=== PATIENT | female | born 1980 | race Caucasian/White ===

== ENCOUNTER 2020-05-19 16:01 | Outpatient (CLI) | payer BC, SELFPAY ==
--- NOTE | ~2020-05-19 | US_ITS ---
EXAMINATION: US thyroid EXAM DATE: 05/19/2020 16:33 INDICATION: Multinodular goiter. TECHNIQUE: Multiple grayscale and Doppler images of the thyroid were obtained (by a technologist who performed the scan) and subsequently reviewed. Individual nodules and recommendations may be reporte d in accordance with TI-RADS system as designated by the 2017 ACR White Paper TI-RADS committee. Comp constanzason is made to prior examination from 02/27/2019, 02/01/2018. FINDINGS: The right thyroid lobe measures 5.8 x 0.8 x 2.4 cm, the left measuring 5.4 x 1.3 x 1.9 cm. These dime nsions are mildly enlarged. Relatively homogeneous thyroid echogenicity, with scattered thyroid nodul es. Previously characterized right thyroid lobe superior pole category TR 4 nodule measures 1.2 x 0.9, st able. This demonstrates hypervascularity. Previously demonstrated right thyroid lobe midpole category TR 5 nodule measures 1.3 x 0.7 x 1.0 cm, stable. This demonstrates microcalcifications. Previously demonstrated left thyroid lobe category TR 4 nodule was previously biopsied, measures 1.7 x 0.6 x 1.1 cm, is hypervascular. There is another left thyroid lobe category TR 4 nodule more superf icial and laterally measuring 1.7 x 0.9 x 1.2 cm, also previously biopsied with benign results, also unchanged. IMPRESSION: Stable multinodular goiter. Reviewed, dictated and finalized at location G. IMPRESSION: Stable multinodular goiter.
== END 2020-05-19 16:02 | disposition home or self-care (01) ==
PROVIDERS: Visit Provider Internal Medicine Endocrinology, Diabetes & Metabolism
DX: E04.2 Nontoxic multinodular goiter (principal)
CPT/HCPCS: 76536

== ENCOUNTER 2021-04-14 15:52 | Outpatient (CLI) | payer BC, SELFPAY ==
--- NOTE | ~2021-04-14 | US_ITS ---
EXAMINATION: US thyroid DATE: 04/14/2021 16:28 INDICATION: Nontoxic single thyroid nodule TECHNIQUE: Multiple ultrasound images of the thyroid were obtained. COMPARISON: 05/19/2020 FINDINGS: The right thyroid lobe measures 5.3 x 1.9 x 1.6 cm. The left thyroid lobe measures 5.3 x 2.2 x 1.1 c m. Thyroid isthmus measures 3-4 mm thickness. Unchanged 1.4 cm isoechoic predominantly solid nodule w ith smooth margins and without echogenic foci in the superior right thyroid lobe (TI-RADS 3, mildly s uspicious , FNA if >=2.5 cm, annual followup is >1.5 cm). Unchanged 1.4 cm predominant solid wider th an tall hypoechoic nodule with smooth margins and with a few small internal echogenic foci (TI-RADS 5 , highly suspicious , FNA if >=1.0 cm, annual followup is >0.5 cm) in the mid right thyroid. Unchange d 9 mm TI RADS 1 spongiform nodule in the inferior right thyroid lobe. Unchanged 1.8 cm solid isoecho ic nodule which is wider than tall and with smooth echogenic margins at the superior left thyroid wit h previous benign biopsy in 06/15/2016. Unchanged 2.0 cm wider than tall solid hypoechoic nodule with lobular margins and internal echogenic foci in the inferior left thyroid lobe (TI-RADS 5, highly stephanie picious , FNA if >=1.0 cm, annual followup is >0.5 cm), also with prior benign biopsy on 03/07/2018. IMPRESSION: 1. Stable multinodular goiter with prior benign biopsies of the 2 largest left thyroid nodules. Reviewed, dictated and finalized at location A.
== END 2021-04-14 15:53 | disposition home or self-care (01) ==
PROVIDERS: PCP Internal Medicine Endocrinology, Diabetes & Metabolism; Visit Provider Internal Medicine Endocrinology, Diabetes & Metabolism
DX: E04.2 Nontoxic multinodular goiter (principal)
CPT/HCPCS: 76536

== ENCOUNTER 2022-04-19 09:30 | Outpatient (CLI) | payer BC, SELFPAY ==
--- NOTE | ~2022-04-19 | US_ITS ---
EXAMINATION: US thyroid DATE: 04/19/2022 10:16 INDICATION: Thyroid nodule. TECHNIQUE: Multiple ultrasound images of the thyroid were obtained. COMPARISON: Thyroid ultrasound 04/14/2021, 04/14/2016, 02/27/19 FINDINGS: The right thyroid lobe measures 5.9 x 1.5 x 2.4 cm. The left thyroid lobe measures 5.5 x 0.9 x 2.3 c m. In superior right thyroid lobe, there is a 1.8 cm solid, hypoechoic, wider than tall nodule with smooth margin without echogenic foci (TI-RADS TR4), stable from 04/14/21 and increased in size from . In the right thyroid lobe, there is a 1.4 cm mixed cystic and solid, hypoechoic, wider than ta ll nodule with lobulated margin and punctate echogenic foci (TR5), stable from 04/14/16 and likely vivek ign. In the left thyroid lobe, there is a 1.9 cm solid, hypoechoic, wider than tall nodule with ill-d efined margin without echogenic foci (TR4), decreased in size from 04/14/16 and with benign biopsy on 06/15/16. In the left thyroid lobe, there is a 1.9 cm solid, hypoechoic, wider than tall nodule with lobulated margin and punctate echogenic foci (TR5), stable from 03/07/18 when biopsy was benign. IMPRESSION: 1. Stable multinodular goiter. Reviewed, dictated and finalized at location A.
== END 2022-04-19 09:31 | disposition home or self-care (01) ==
PROVIDERS: Visit Provider Internal Medicine Endocrinology, Diabetes & Metabolism
DX: E04.2 Nontoxic multinodular goiter (principal)
CPT/HCPCS: 76536

== ENCOUNTER 2025-03-30 14:14 | Outpatient (CLI) | payer OTHER, SELFPAY ==
--- NOTE | ~2025-03-30 | US_ITS ---
US thyroid INDICATION: Multinodular goiter TECHNIQUE: Real-time sonographic images of the thyroid gland were obtained. COMPARISON: Ultrasound dated 04/19/2022 FINDINGS: The right thyroid lobe measures 5.7 x 2.3 x 1.4 cm. The left thyroid lobe measures 5.8 x 2 .2 x 1.1 cm. Thyroid gland is diffusely heterogeneous with multiple masses, largest on the right page ures 2.3 x 1.3 x 1.4 cm and is mostly solid, hypoechoic, wider than tall, smoothly marginated without internal echogenic foci, TR 4 this is larger than on prior examination when it measured 1.8 x 1.4 x 1 cm stable left thyroid masses, largest measuring 1.9 x 1.4 x 1 cm.. IMPRESSION: 1. Multinodular goiter. Enlargement of dominant right thyroid mass now measuring 2.3 cm, TR 4. Ultra sound-guided right thyroid biopsy recommended. Reviewed, dictated and finalized at location A. IMPRESSION: 1. Multinodular goiter. Enlargement of dominant right thyroid mass now measuri ng 2.3 cm, TR 4. Ultrasound-guided right thyroid biopsy recommended.
--- OUTSIDE RECORDS SUMMARY | 2025-03-30 14:19 | XMS_ITS | Clinical Summary ---
Author Organization [facility] Address [facility] [place] [address] Care Team Providers Care Slime Plant Operator Name Role Phone Unavailable Primary Care Provider Unavailabl e Social History Tobacco Use Types Packs/Day Years Used Date Smoking Tobacco: Never Assessed Comments Unknown Sex and Gender Information Value Date Recorded Sex Assigned at Not on file Legal Sex Female 5:48 PM CDT Gender Identity Not on file Sexual Orientation Not on file Plan of Treatment Health Maintenance Due Date Last Done Comments Cervical Cancer Screening Pa p Smear (Age 30 to 64) Every 3 Years 1979 Colorectal Cancer Screening Colonoscopy (10 Years) 1979 Annual Physical 1982 Hepatitis C 1997 DTaP, Tdap and Td Vaccines ( 1 - Tdap) 1998 Hepatitis B Vaccines (1 of 3 - 19+ 3-dose series) 1998 HPV Vaccines (1 - 3-dose SCD M series) 2006 Cervical Cancer Screening Pa p with HPV Testing (Age 30 to 64) Every 5 Years 2009 Cervical Cancer Screening with HPV 2009 Mammogram Screening 2019 COVID-19 Vaccine (2023-2 5 season) 2024 Meningococcal B Vaccine Aged Out No l onger eligible based on patient's age to complete this topic Meningococcal Vaccine Aged Out No roman luci eligible based on patient's age to complete this topic Pneumococcal Vaccine: Pediat rics (0 to 5 Years) and At-Risk Patients (6 to 49 Years) Aged Out No longer eligible b ased on patient's age to complete this topic RSV Immunizations Under 20 Months Aged Out No longer eligible based on patient's age to complete this topic
--- OUTSIDE RECORDS SUMMARY | 2025-03-30 14:19 | XMS_ITS | Clinical Summary ---
Author Organization [facility] ([place], [place]) Address [facility] [place] [address] Care Team Providers Care Video System Repairer Name Role Phone Wallace Simmons MD Primary Care Provider [phone] Allergies No known active allergies Medications norethindrone (MICRONOR) 0.35 mg tablet Take 1 tablet (0.35 mg total) by mouth daily 09/25/2024 Active escitalopram (LEXAPRO) 20 mg tablet Take 1 tablet (20 mg total) by mouth daily Active spironolactone (ALDACTONE) 100 mg tablet Take 1 tablet (100 mg total) by mouth daily 11/07/2024 Active SUMAtriptan (IMITREX) 50 mg tablet Take 1 tablet (50 mg total) by mouth 2 (two) times a day as needed Active nitrofurantoin monohydrate (MACROBID) 100 mg capsuleIndicatio ns:Urinary tract infection with hematuria, site unspecified Take 1 capsule (100 mg total) by mouth 2 (two) times a day 11/27/2024 Active Active Problems No known active problems Surgical History Surgery Date Site/Laterality Comments APPENDECTOMY Social History Tobacco Use Types Packs/Day Years Used Date Smoking Tobacco: Never Smokeless Tobacco: Never Tobacco Cessation:Counseling Given: Not Answered Comments No Sex and Gender Information Value Date Recorded Sex Assigned at Not on file 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 Gender Identity Not on file Sexual Orientation Not on file Obstetrics History Para Term AB IAB SAB Ectopic Multiple Livin g Live Births 2 2 2 Date Outcome GA Total Labor Labor/2nd/3rd Weight Sex Type Anes PTL Gunjan A1 A5 Name Clin Term Term Last Filed Vital Signs Vital Sign Reading Time Taken Comments Blood Pressure 118/78 11/27/2024 10:46 AM CDT Pulse 107 11/27/2024 10:46 AM CDT Temperature 36.5 C (97.7 F) 11/27/2024 10:46 AM CDT Respiratory Rate 18 11/27/2024 10:4 6 AM CDT Oxygen Saturation 98% 11/27/2024 10: 46 AM CDT Inhaled Oxygen Concentration - - Weight 113.8 kg (250 lb 12.8 oz) 2024 10:46 AM CDT Height 170.2 cm (5' 7) 11/27/2024 10:4 6 AM CDT Body Mass Index 39.28 11/27/2024 10:46 AM CDT Plan of Treatment Health Maintenance Due Date Last Done Comments Cervical Cancer Screening 1979 Colon Cancer Screening-Colonoscopy 1979 Depression Screening 1979 Hepatitis C Screening 1979 Hepatitis B Screening 1997 Regular Well Visit/Exam 18-64 1997 HPV Vaccines (1 - 3-dose SCD M series) 2006 DTaP/Tdap/Td Vaccine (2 - Td or Tdap) 10/31/2021 11/01/2011 Covid-19 Vaccine (4 - 2023-2 5 season) 2024 08/21/2021, 11/19/2020, 10/20/2020 Breast Cancer Screening-Mammogram 05/24/2024 05/24/2023, 12/17/2021 Influenza Vaccine (#1) 2025 Pneumococcal vaccine <65 Aged Out No longer eligible based on patient's age to complete this topic Procedures Procedure Name Priority Date/Time Associated Diagnosis Comments SCREENING MAMMOGRAM BILATERAL W YASMANI Schedule Routine, Read Routine (OP Routine) 05/24/2023 4:03 PM CDT Screening mammogram, encounter for from Last 3 Months or Most Recently Relevant to Health Maintenance Results * Screening Mammogram Bilateral W Yasmani (05/24/2023 4:03 PM CDT) Anatomical Region Laterality Modality Breast Bilateral Mammography Impressions 05/24/2023 7:54 PM CDT BI-RADS ATLAS category (overall): 1 - Negative There is no mammographic evidence of malignancy. A 1 year screening mammogram is recommended. The patient has been or will be contacted. We recommend annual screening mammography for women at average risk of breast cancer beginning at age 40, based on guidelines of the [employer] (ACR Practice Parameter for the Performance of Screening and Diagnostic Mammography) and [employer]. For women with and elevated risk of breast cancer, please refer to the ACR Practice Parameter for specific screening recommendations. The patient will be entered into a reminder system with a target due date of 1 year for her next screening exam. Narrative 05/24/2023 7:54 PM CDT Screening Mammogram Bilateral W Yasmani: 05/24/23 The study was acquired using full field digital technology and interpreted from soft copy. 2D digital mammographic views, as well as 3D digital tomosynthesis were performed in the CC and MLO projections. CLINICAL: Screening mammogram, encounter for. No relevant medical history has been documented for this patient. No known family history of breast cancer. COMPARISONS: 12/17/2021 Screening Mammogram Bilateral W Yasmani BREAST TISSUE: The breasts are heterogeneously dense, which may obscure small masses. FINDINGS: There is no new suspicious finding in either breast on mammogram. us Self Screening Mammogram IMG MAMMO PROCEDURES Fi nal Result from Last 3 Months or Most Recently Relevant to Health Maintenance [place] [address] [facility] Care Teams Video System Repairer Relationship Specialty Start Date End Date Wallace Simmons MD 3 [facility] MATEO WILSON [address] [address] PCP - General Family Medicine 12/14/21
--- OUTSIDE RECORDS SUMMARY | 2025-03-30 14:19 | XMS_ITS ---
Author Organization [facility] Address [address] [place] [id number] Care Team Providers Care Channel Machine Operator Name Role Phone Maxine Giang [phone] REASON FOR VISIT 6 week fu Medications Medication SIG (Take, Route, Frequency, Duration) Notes Start Date End Date Status Berberine Chloride *Pick strength-form from Medispan for eRX* Active Magnesium *Pick strength-form from Medispan for eRX* Active Spironolactone 100 MG Tablet 1 tablet Orally Once a day Active SUMAtriptan *Pick strength-form from Med[employer] for eRX* Active Escitalopram Oxalate 20 MG Tablet 1 tablet Orally Once a day Active Norethindrone 0.35 MG Tablet 1 tablet Orally Once a day; Duration: 90 days 09/25/2024 Active dexAMETHasone 1 MG Tablet 1 tablet Orally at 10 pm night before 8 am cortisol; Duration: 1 days 11/17/2024 Active Zepbound 2.5 MG/0.5ML Solution Auto-injector 0.5 mL Subcutaneous once a week; Duration: 30 days 11/17/2024 Active Zepbound 5 MG/0.5ML Solution Auto-injector 0.5 mL Subcutaneous once a week; Duration: 90 days 11/17/2024 Active Encounters Encounter Location Date Provider Diagnosis [address] [address] 01/05/2025 Maxine Giang Plan Of Treatment Next Appt Details Provider Name:Maxine Giang, 01:40:00 PM, [address] [place] [address], [phone], History and Physical Notes * HPI (History of Present Illness) Category Sub-Category Detail Notes Category Not es History of Present Illness 44 yo female comes in for follow up in management and evaluation of PCOS, weight management and fatigue. At initial visit we stopped nortreal and transitioned to progesterone based therapy only and continued citalopram 20 mg daily. Sent for DST and Progress Notes * Jasmin INMANDOB:[birth year] (44 yo F)Acc No.[id number]:01/05/2025 Progress Notes Patient: Jasmin Robertson Provider: Damaris Giang MD :1980 A ge:44 Y S ex:Female Date:01/05/2025 Address:[address] [place] [address] , [place] [address] Subjective: * Chief Complaints: * 6 week fu * HPI: H istory of Present Illness: 44 yo female comes in for follow up in management and evaluation of PCOS, weight management and fatigue. At initial visit we stopped nortreal and transitioned to progesterone based therapy only and continued citalopram 20 mg daily. Sent for DST and. * Medications: T akingBerberine Chloride , Notes to Pharmacist: *[facility]*Magnesium , Notes to Pharmacist: *[facility]*SUMAtriptan , Notes to Pharmacist: *Pick strength-form from [employer] for eRX*Escitalopram Oxalate 20 MG Tablet 1 tablet Orally Once a day Spironolactone 100 MG Tablet 1 tablet Orally Once a day Norethindrone 0.35 MG Tablet 1 tablet Orally Once a day Zepbound 2.5 MG/0.5ML Solution Auto-injector 0.5 mL Subcutaneous once a week Zepbound 5 MG/0.5ML Solution Auto-injector 0.5 mL Subcutaneous once a week dexAMETHasone 1 MG Tablet 1 tablet Orally at 10 pm night before 8 am cortisol Taking Berberine Chloride , Notes to Pharmacist: *Pick strength-form from [employer] for eRX*Taking Magnesium , Notes to Pharmacist: *Pick strength-form from Medispan for eRX*Taking SUMAtriptan , Notes to Pharmacist: *Pick strength-form from [employer] for eRX*Taking Escitalopram Oxalate 20 MG Tablet 1 tablet Orally Once a day Taking Spironolactone 100 MG Tablet 1 tablet Orally Once a day Taking Norethindrone 0.35 MG Tablet 1 tablet Orally Once a day Taking Zepbound 2.5 MG/0.5ML Solution Auto- injector 0.5 mL Subcutaneous once a week Taking Zepbound 5 MG/0.5ML Solution Auto- injector 0.5 mL Subcutaneous once a week Taking dexAMETHasone 1 MG Tablet 1 tablet Orally at 10 pm night before 8 am cortisol Objective: * P ast Orders: L ab:CORTISOL, LC/MS, SALIVA, 2 SAMPLES ([id number]) (Order Date - 12/29/2024) (Collection Date & Time - 12/29/2024 07:30 AM) Value Reference Range DRAW DATE 1 12/28/2024 - DRAW TIME 1 12:00 AM - CORTISOL, SALIVA SAMPLE 1 <0.03 - mcg/dL CORTISOL, SALIVA SAMPLE 2 <0.03 - mcg/dL Notes: Maxine Giang 12/31/2024 09:23:12 AM CDT >discuss at return/pending Maxine Giang 01/03/2025 06:54:43 PM CDT >pending L ab:CALCIUM, 24 HOUR URINE (W/ CREATININE) ([id number]) (Order Date - 12/29/2024) (Collection Date & Time - 12/29/2024 07:30 AM) Value Reference Range CALCIUM/CREATININE RATIO 248 30-275 - mg/g c reat CALCIUM, 24 HOUR URINE 342 H - mg/24 h CREATININE, 24 HOUR URINE 1.38 0.50-2.15 - g/ 24 h Notes: Maxine Giang 12/31/2024 09:23:12 AM CDT >discuss at return/pending L ab:CORTISOL, FREE, 24 HOUR URINE ([id number]) (Order Date - 12/29/2024) (Collection Date & Time - 12/29/2024 07:30 AM) Value Reference Range CREATININE, URINE 1.37 0.50-2.15 - g/24 h CORTISOL, FREE, 24 HOUR 19.5 4.0-50.0 - mcg/2 4 h TOTAL VOLUME 2000 - mL CORTISOL, FREE, URINE 14.2 - mcg/g creat Notes: Maxine Giang 12/31/2024 09:23:12 AM CDT >discuss at return/pending Maxine Giang 01/03/2025 06:54:43 PM CDT >pending L ab:CORTISOL, TOTAL ([id number]) (Order Date - 12/23/2024) (Collection Date & Time - 12/23/2024 07:34 AM) Value Reference Range CORTISOL, TOTAL 1.3 L - mcg/dL Notes: Maxine Giang 12/24/2024 08:26:58 PM CDT >DST borderline discuss at return visit L ab:DEXAMETHASONE ([id number]) (Order Date - 12/23/2024) (Collection Date & Time - 12/23/2024 07:34 AM) Value Reference Range DEXAMETHASONE 212 - ng/dL Notes: Maxine Giang 12/24/2024 08:26:58 PM CDT >DST borderline discuss at return visit Maxine Giang 01/07/2025 08:51:05 PM CDT >dexa in range Billing Information: * Procedure Codes: * Electronic signature of Jose Raul Giang MD on 03/30/2025 at 02:18 PM CDT Sign off status: Pending * Provider: Damaris Giang MD Date: 0 01/05/2025 Generated for Jd pérez/Cary/eTransmitting on: 0 03/30/2025 02:18 PM CDT
--- OUTSIDE RECORDS SUMMARY | 2025-03-30 14:19 | XMS_ITS | Patient Health Record ---
Author Organization [facility] Address [address] [facility] [place] [address] [place] [phone] Care Team Providers Care Roaster Supervisor Name Role Phone Maxine Giang Unavailable [phone] Allergies No Known Allergies Results Component Value Reference Range Flag Notes .COMPREHENSIVE METABOLIC MCKENZIE EL (36149) CMP Reviewed date:10/25/2024 08:24:04 AM Interpretation: Performing Lab:[place], [facility]-[id number] Shruti Schneider, WuzeewMC[address] IsisCarmita Guaman MD Notes/Report: FASTING: YES FASTING:YES GLUCOSE 92 65-99 mg/dL N Fasting reference interval UREA NITROGEN (BUN) 10 7-25 mg/dL N CREATININE 0.63 0.50-0.99 mg/dL N EGFR 111 > OR = 60 mL/min/1.73m2 N BUN/CREATININE RATIO SEE NOTE: 6-22 (calc) Not Reported: BUN and Creatinine are within reference range. SODIUM 137 135-146 mmol/L N POTASSIUM 4.3 3.5-5.3 mmol/L N CHLORIDE 103 98-110 mmol/L N CARBON DIOXIDE 26 20-32 mmol/L N CALCIUM 9.2 8.6-10.2 mg/dL N PROTEIN, TOTAL 6.8 6.1-8.1 g/dL N ALBUMIN 4.1 3.6-5.1 g/dL N GLOBULIN 2.7 1.9-3.7 g/dL (calc) N ALBUMIN/GLOBULIN RATIO 1.5 1.0-2.5 (calc) N BILIRUBIN, TOTAL 0.9 0.2-1.2 mg/dL N ALKALINE PHOSPHATASE 66 31-125 U/L N AST 15 10-35 U/L N ALT 14 6-29 U/L N MAGNESIUM (622) Reviewed date:10/25/2024 08:24:04 AM Interpretation: Performing Lab:Denis BATISTA-Yfmdbk61856 Shruti Schneider, TjknwbPE[address] Alysia Guaman MD Notes/Report: FASTING: YES FASTING:YES MAGNESIUM 2.2 1.5-2.5 mg/dL N .LIPID PANEL, STANDARD (7600 ) Reviewed date:10/25/2024 08:24:04 AM Interpretation: Performing Lab:Denis BATISTA-Lyapfz95784 Shruti Bailon, MdfrcySE[address] Alysia Guaman MD Notes/Report: FASTING:YES FASTING: YES CHOLESTEROL, TOTAL 163 <200 mg/dL N HDL CHOLESTEROL 54 > OR = 50 mg/dL N TRIGLYCERIDES 73 <150 mg/dL N LDL-CHOLESTEROL 93 N <70 mg/dL for patients with CHD or diabetic patients LDL-C is now calculated using the RogelioLane better accuracy than the Friedewald equation in the Reference range: <100 calculation, which is a validated novel method providing Osbaldo TRIVEDI et al. KELSIE. 2013;310(19): 7810-7514 (http://education.Attune Technologies/faq/DNA707) Desirable range <100 mg/dL for primary prevention; with > or = 2 CHD risk factors. estimation of LDL-C. CHOL/HDLC RATIO 3.0 <5.0 (calc) N NON HDL CHOLESTEROL 109 <130 mg/dL (calc) N option. For patients with diabetes plus 1 major ASCVD risk (LDL-C of <70 mg/dL) is considered a therapeutic factor, treating to a non-HDL-C goal of <100 mg/dL ACTH, PLASMA (211) Reviewed date:11/01/2024 12:38:29 PM Interpretation: Performing Lab:Denis OSORIO/Marbella Birch [id number] [facility] , BolhuusfzNH[address] Juan Carlos Coleman M.D.,PhD Notes/Report: FASTING:YES FASTING: YES ACTH, PLASMA 9 6-50 pg/mL Reference range applies only to specimens collected between 7am-10am. TESTOSTERONE, FREE (DIALYSIS ) AND TOTAL,MS (21933) Reviewed date:11/01/2024 12:30:15 PM Interpretation: Performing Lab:Z3E, [facility]-W[address]Szaarp[address] [address], [address], WdotgrfmbjDB[address] Boby Granda MD,PhD Notes/Report: FASTING: YES FASTING:YES TESTOSTERONE, TOTAL, MS 16 2-45 ng/dL For additional information, please refer to This test was developed and its analytical performance been validated pursuant to the CLIA regulations and is characteristics have been determined by [facility]. It has used for clinical purposes. (This link is being provided for informational/educational purposes only.) not been cleared or approved by the FDA. This assay has (Note) https://education.Goumin.com/faq/GDS651 TESTOSTERONE, FREE 1.5 0.1-6.4 pg/mL Boby Granda MD, PhD been validated pursuant to the CLIA regulations and is used for clinical purposes. [address] [address],[address] MDF characteristics have been determined by [facility]. It has [facility] [address] This test was developed and its analytical performance [phone] [facility] not been cleared or approved by the FDA. This assay has (Note) .VITAMIN D,25-OH,TOTAL,IA (1 6158) Reviewed date:10/25/2024 08:24:04 AM Interpretation: Performing Lab:LESTER, [facility]-Bqtgfp33125 Shruti Bailon, YotrgsHT[address] Alysia Guaman MD Notes/Report: FASTING: YES FASTING:YES VITAMIN D,25-OH,TOTAL,IA 37 30-100 ng/mL N http://education.SensorD[employer]/faq/VVO336 For additional information, please refer to See Note 1 Vitamin D Status 25-OH Vitamin D: code 55350 (patients >2yrs). Deficiency: <20 ng/mL 25-OH VIT D, (D2,D3), LC/MS/MS is recommended: order Insufficiency: 20 - 29 ng/mL Note 1 of D2 and D3 fractions is required, the [facility](TM) D2-supplementation and patients for whom quantitation Optimal: > or = 30 ng/mL For 25-OH Vitamin D testing on patients on educational purposes only.) (This link is being provided for informational/ T3, FREE (27084) Reviewed date:10/25/2024 08:24:04 AM Interpretation: Performing Lab:Denis BATISTA [place] Alysia Guaman MD Notes/Report: FASTING:YES FASTING: YES T3, FREE 3.2 2.3-4.2 pg/mL N TSH (899) Reviewed date:10/25/2024 08:24:04 AM Interpretation: Performing Lab:Denis BATISTA [place] Alysia Guaman MD Notes/Report: FASTING:YES FASTING: YES TSH 1.14 N Reference Range First trimester 0.26-2.66 Second trimester 0.55-2.73 Ranges Third trimester 0.43-2.91 > or = 20 Years 0.40-4.50 T4, FREE (866) Reviewed date:10/25/2024 08:24:04 AM Interpretation: Performing Lab:Denis BATISTA [place] Alysia Guaman MD Notes/Report: FASTING:YES FASTING: YES T4, FREE 1.0 0.8-1.8 ng/dL N VITAMIN B12/FOLATE, SERUM PA KALLI (2017) Reviewed date:10/25/2024 08:24:04 AM Interpretation: Performing Lab:Denis BATISTA [place] Alysia Guaman MD Notes/Report: FASTING:YES FASTING: YES VITAMIN B12 139 382-1392 pg/mL N FOLATE, SERUM >24.0 N Normal: >5.4 Reference Range Low: <3.4 Borderline: 3.4-5.4 DHEA SULFATE (402) Reviewed date:10/25/2024 08:24:04 AM Interpretation: Performing Lab:Denis BATISTA [place] Alysia Guaman MD Notes/Report: FASTING:YES FASTING: YES DHEA SULFATE 24 15-205 mcg/dL N PROGESTERONE (745) Reviewed date:10/25/2024 08:24:04 AM Interpretation: Performing Lab:Denis BATISTAa10101 Shruti Schneider, BazedpHZ[address] Alysia Guaman MD Notes/Report: FASTING:YES FASTING: YES PROGESTERONE <0.5 N Follicular Phase < 1.0 3rd Trimester 52.0-302.0 Luteal Phase 2.6-21.5 1st Trimester 4.1-34.0 2nd Trimester 24.0-76.0 Reference Ranges Female Post menopausal < 0.5 INSULIN (561) Reviewed date:10/25/2024 08:24:04 AM Interpretation: Performing Lab:LE[place] [facility]-Hgxiqf60732 Shruti Bailon, QworwqDL[address] Alysia Guaman MD Notes/Report: FASTING:YES FASTING: YES INSULIN 7.8 N are based on Insulin Reference Interval Reference Range < or = 18.4 Risk: High >18.4 in 2021. Adult cardiovascular event risk category Optimal < or = 18.4 studies performed at [facility] Moderate NA cut points (optimal, moderate, high) ESTRADIOL (4021) Reviewed date:10/25/2024 08:24:04 AM Interpretation: Performing Lab:LESTER [facility]-Vjploi78406 Shruti Bailon, GeiscpUU[address] Alysia Guaman MD Notes/Report: FASTING:YES FASTING: YES ESTRADIOL 42 N population. No pre-pubertal reference range Mid-Cycle: 64-357 inappropriate clinical assessment of estrogen status. elevated estradiol test results leading to an measurement. The cross reactivity could lead to falsely reactivity with fulvestrant. Reference Range interference in immunoassay methods for estradiol Estradiol, Ultrasensitive, LCMSMS assay is recommended established using this assay. For any patients for females), the [facility] Please note: patients being treated with the drug fulvestrant (Faslodex(R)) have demonstrated significant Follicular Phase: 19-144 pre-pubertal children and hypogonadal/post-menopaus al Reference range established on post-pubertal patient (order code 73792). whom low Estradiol levels are anticipated (e.g. males, Ultrasensitive LC/MS/MS demonstrates negligible cross Luteal Phase: 56-214 Postmenopausal: < or = 31 [facility] order code [id number], .HEMOGLOBIN A1c (496) Reviewed date:10/25/2024 08:24:04 AM Interpretation: Performing Lab:ANKIT [facility] Administration Keila Cuellar BpewbwjOF[address] Alysia Guaman Notes/Report: FASTING:YES FASTING: YES HEMOGLOBIN A1c 5.3 <5.7 % of total Hgb N <5.7% Consistent with the absence of diabetes guidelines, hemoglobin A1c <7.0% represents optimal diabetes: hemoglobin A1c for diagnosis of diabetes in children. (prediabetes) For the purpose of screening for the presence of metrics may apply to specific patient populations. Currently, no consensus exists regarding use of > or =6.5% Consistent with diabetes of diabetes. According to [place] Diabetes Association (ADA) This assay result is consistent with a decreased risk Standards of Medical Care in Diabetes(ADA). control in non- diabetic patients. Different 5.7-6.4% Consistent with increased risk for diabetes THYROID PEROXIDASE ANTIBODIE S (5081) Reviewed date:10/27/2024 08:41:42 PM Interpretation: Performing Lab:SELENA [facility]-Rahat Akinse[address] Rahat [place] Chivo Sutton Notes/Report: FASTING:YES FASTING: YES THYROID PEROXIDASE ANTIBODIES 1 <9 IU/mL .CBC (INCLUDES DIFF/PLT) (63 99) Reviewed date:10/25/2024 08:24:04 AM Interpretation: Performing Lab:LESTER [facility]-[id number] Shruti Bailon, CmilkxWM[address] Alysia Guaman MD Notes/Report: FASTING:YES FASTING: YES WHITE BLOOD CELL COUNT 6.7 3.8-10.8 Thousand/uL N RED BLOOD CELL COUNT 5.13 3.80-5.10 Million/uL H HEMOGLOBIN 15.4 11.7-15.5 g/dL N HEMATOCRIT 45.8 35.0-45.0 % H MCV 89.3 80.0-100.0 fL N MCH 30.0 27.0-33.0 pg N MCHC 33.6 32.0-36.0 g/dL N For adults, a slight decrease in the calculated MCHC value (in the range of 30 to 32 g/dL) is most likely condition. red cell parameters and the patient's clinical not clinically significant; however, it should be interpreted with caution in correlation with other RDW 12.1 11.0-15.0 % N PLATELET COUNT 340 140-400 Thousand/uL N MPV 10.4 7.5-12.5 fL N ABSOLUTE NEUTROPHILS 4757 3400-8800 cells/uL N ABSOLUTE LYMPHOCYTES 2221 870-6587 cells/uL N ABSOLUTE MONOCYTES 429 200-950 cells/uL N ABSOLUTE EOSINOPHILS 60 15-500 cells/uL N ABSOLUTE BASOPHILS 47 0-200 cells/uL N NEUTROPHILS 71 N LYMPHOCYTES 21.0 N MONOCYTES 6.4 N EOSINOPHILS 0.9 N BASOPHILS 0.7 N CORTISOL, LC/MS, SALIVA, 2 S AMPLES (12710) Reviewed date:01/22/2025 10:54:04 PM Interpretation: Performing Lab:MARCO, Denis Holbrook/[facility]ella [facility],[address] [address] WillardFtpimigiqkES[address] Reina Okeefe MD,PhD,JANICE Notes/Report: FASTING:YES URINE VOLUME: FASTING: YES DRAW DATE 1 12/26/2024 DRAW TIME 1 12:00 AM CORTISOL, SALIVA SAMPLE 1 <0.03 has been validated pursuant to the CLIA regulations and is This test was developed and its analytical performance characteristics have been determined by [facility]. noon-2 PM: < OR = 0.21 mcg/dL 10 PM-1 AM: < OR = 0.09 mcg/dL used for clinical purposes. 8-10 AM: 0.04-0.56 mcg/dL 4-6 PM: < OR = 0.15 mcg/dL It has not been cleared or approved by the FDA. This assay DRAW DATE 2 12/28/2024 DRAW TIME 2 12:00 AM CORTISOL, SALIVA SAMPLE 2 <0.03 4-6 PM: < OR = 0.15 mcg/dL 10 PM-1 AM: < OR = 0.09 mcg/dL 8-10 AM: 0.04-0.56 mcg/dL It has not been cleared or approved by the FDA. This assay noon-2 PM: < OR = 0.21 mcg/dL used for clinical purposes. characteristics have been determined by [facility]. This test was developed and its analytical performance has been validated pursuant to the CLIA regulations and is CALCIUM, 24 HOUR URINE (W/ C REATININE) (1635) Reviewed date:12/31/2024 09:24:10 AM Interpretation: Performing Lab:Denis BATISTA-Vtslre83310 Shruti [facility], UicthqKV[address] Alysia Guaman MD Notes/Report: FASTING:YES URINE VOLUME: 2000/24 FASTING: YES CALCIUM/CREATININE RATIO 248 30-275 mg/g creat N CALCIUM, 24 HOUR URINE 342 H Reference Range 35-250 Low calcium diet 35-200 CREATININE, 24 HOUR URINE 1.38 0.50-2.15 g/24 h N CORTISOL, FREE, 24 HOUR URIN E (97331) Reviewed date:01/03/2025 06:54:50 PM Interpretation: Performing Lab:Denis LARA/[facility],[address] [facility] Reina Okeefe MD,PhD,JANICE Notes/Report: FASTING:YES URINE VOLUME: 1999/24 FASTING: YES TOTAL VOLUME 2000 CORTISOL, FREE, URINE 19.5 4.0-50.0 mcg/24 h CORTISOL, FREE, URINE 14.2 ADULTS: 3.1-42.3 Reference Range: CREATININE, URINE 1.37 0.50-2.15 g/24 h It has not been cleared or approved by the FDA. This assay has been validated pursuant to the CLIA regulations and is characteristics have been determined by [facility]. This test was developed and its analytical performance used for clinical purposes. DEXAMETHASONE (87736) Reviewed date:11/12/2024 11:15:24 AM Interpretation: Performing Lab:Denis LARA/[facility],[address] [facility] Reina Okeefe MD,PhD,JANICE Notes/Report: DEXAMETHASONE 205 been validated pursuant to the CLIA regulations and is used This test was developed and its analytical performance It has not been cleared or approved by FDA. This assay has Reference Ranges for Dexamethasone: 1 mg dexamethasone overnight: 180-550 ng/dL (8:00-10:00 AM) Baseline: Less than 20 ng/dL characteristics have been determined by [facility]. for clinical purposes. CORTISOL, TOTAL (367) Reviewed date:11/01/2024 12:40:49 PM Interpretation: Performing Lab:Denis BATISTA-Ugkkxi66965 Shruti Bailon, NikqzmDA[address] Alysia Guaman MD Notes/Report: CORTISOL, TOTAL 1.0 L Reference Range: For 4 p.m.(3-5 p.m.) Specimen: 3.0-17.0 Reference Range: For 8 a.m.(7-9 a.m.) Specimen: 4.0-22.0 * Please interpret above results accordingly * CORTISOL, TOTAL (367) Reviewed date:12/24/2024 08:27:10 PM Interpretation: Performing Lab:Denis BATISTA-Xywzer87785 Shruti Bailon, FmpsdjWH[address] Alysia Guaman MD Notes/Report: FASTING:YES FASTING: YES CORTISOL, TOTAL 1.3 L * Please interpret above results accordingly * Reference Range: For 8 a.m.(7-9 a.m.) Specimen: 4.0-22.0 Reference Range: For 4 p.m.(3-5 p.m.) Specimen: 3.0-17.0 DEXAMETHASONE (97853) Reviewed date:01/07/2025 08:51:11 PM Interpretation: Performing Lab:Denis LARA/[facility],[address] [facility] Reina Okeefe MD,PhD,JANICE Notes/Report: FASTING:YES FASTING: YES DEXAMETHASONE 212 This test was developed and its analytical performance Baseline: Less than 20 ng/dL 1 mg dexamethasone overnight: 180-550 ng/dL (8:00-10:00 AM) Reference Ranges for Dexamethasone: has been validated pursuant to the CLIA regulations and is used for clinical purposes. characteristics have been determined by [facility]. It has not been cleared or approved by the FDA. This assay Reason For Referral No Information Medications Medication SIG (Take, Route, Frequency, Duration) Notes Start Date End Date Status Spironolactone 100 MG Tablet 1 tablet Orally Once a day Active Norethindrone 0.35 MG Tablet 1 tablet Orally Once a day; Duration: 90 days 09/25/2024 Active Zepbound 2.5 MG/0.5ML Solution Auto-injector 0.5 mL Subcutaneous once a week; Duration: 30 days 11/17/2024 Active Zepbound 5 MG/0.5ML Solution Auto-injector 0.5 mL Subcutaneous once a week; Duration: 90 days 11/17/2024 Active Escitalopram Oxalate 20 MG Tablet 1 tablet Orally Once a day Active SUMAtriptan *Pick strength-form from [employer] for eRX* Active dexAMETHasone 1 MG Tablet 1 tablet Orally at 10 pm night before 8 am cortisol; Duration: 1 days 11/17/2024 Active Berberine Chloride *Pick strength-form from [employer] for eRX* Active Magnesium *Pick strength-form from [facility] for e[facility]* Active Social History Social History Additional Details Category Social Info Options Details Migrated Social History Migrated Social History (Alcohol:):yes occasionally (Recreational drug use:):no (Smoking:):no Problems Problem Type SNOMED Code ICD Code Onset Dates Problem Status W/U Status Risk Notes Problem Non-toxic multinodular goiter (14308449) Nontoxic multinodular goiter (E04.2) Active confirmed Problem 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, 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 Problem Polycystic ovary syndrome (disorder) (684631703) Polycystic ovarian syndrome (E28.2) Active confirmed Problem Vitamin D deficiency (46168756) Vitamin D deficiency, unspecified (E55.9) Active confirmed Problem Obesity (763434126) Obesity, unspecified (E66.9) Active confirmed Problem Obstructive sleep apnea (28965242) Obstructive sleep apnea (G47.33) Active confirmed Vital Signs Heart Rate 82 /min 02/06/2025 Respiratory Rate 12 /min 02/06/2025 Blood pressure diastolic 76 mm Hg 02/06/2025 Weight-kg 112.95 kg 02/06/2025 Height 67 in 02/06/2025 Blood pressure systolic 123 mm Hg 02/06/2025 Weight 249 lbs 02/06/2025 BMI 38.99 kg/m2 02/06/2025 Encounters Encounter Location Date Provider Diagnosis [facility] Giang [address] [place] [address] 09/25/2024 Maxine Giang Nontoxic multinodula r goiter E04.2 ; Obesity, unspecified E66.9 ; Abnormal weight gain R63.5 ; Other fatigue R53.83 ; Vitamin D deficiency, unspecified E55.9 ; Encounter for screening for lipoid disorders Z13.220 ; Polycystic ovarian syndrome E28.2 and Dietary counseling and surveillance Z71.[address] Giang [address] [place] [phone] 11/17/2024 Maxine Giang Obesity, unspecified E66.9 ; Polycystic ovarian syndrome E28.2 and Dietary counseling and surveillance Z71.[address] Giang [address] [place] [phone] 02/06/2025 Maxine Rahat Polycystic ovarian syndrome E28.2 ; Obesity, unspecified E66.9 ; Disorder of adrenal gland, unspecified E27.9 and Obstructive sleep apnea G47.[address] Giang [address] [place] [phone] 09/25/2024 Maxine Rahat Obesity, unspecified E66.9 and Polycystic ovarian syndrome E28.[address] [address] 09/25/2024 Maxine Giang [address] [address] 02/06/2025 Maxine Rahat Disorder of adrenal gland, unspecified E27.9 Assessments Encounter Date Diagnosis (ICD Code) Assessment Notes Treatment Notes Treatment Clinical Notes Section Notes 09/25/2024 Nontoxic multinodular goiter (ICD-10 - E04.2) 09/25/2024 Obesity, unspecified (ICD-10 - E66.9) 09/25/2024 Obesity, unspecified (ICD-10 - E66.9) 11/17/2024 Obesity, unspecified (ICD-10 - E66.9) 02/06/2025 Polycystic ovarian syndrome (ICD-10 - E28.2) 02/06/2025 Obesity, unspecified (ICD-10 - E66.9) 02/06/2025 Disorder of adrenal gland, unspecified (ICD-10 - E27.9) 02/06/2025 Disorder of adrenal gland, unspecified (ICD-10 - E27.9) 11/17/2024 Polycystic ovarian syndrome (ICD-10 - E28.2) 09/25/2024 Abnormal weight gain (ICD-10 - R63.5) 09/25/2024 Polycystic ovarian syndrome (ICD-10 - E28.2) 09/25/2024 Other fatigue (ICD-10 - R53.83) 11/17/2024 Dietary counseling and surveillance (ICD-10 - Z71.3) Spent 15 minutes preventative counseling patient on dietary recommendations and changes in setting of hyperglycemia- need to restrict refined sugars and processed foods and incorporate up to 150 minutes of moderate level activity weekly. 02/06/2025 Obstructive sleep apnea (ICD-10 - G47.33) 09/25/2024 Vitamin D deficiency, unspecified (ICD-10 - E55.9) 09/25/2024 Encounter for screening for lipoid disorders (ICD-10 - Z13.220) 09/25/2024 Polycystic ovarian syndrome (ICD-10 - E28.2) 09/25/2024 Dietary counseling and surveillance (ICD-10 - Z71.3) 09/25/2024 Other Assessment and Plan: Thyroid nodulesPatient reports history of thyroid nodules with previous biopsy and ultrasound monitoring, now experiencing new symptoms of tightness and discomfort, especially when swallowing.Perform thyroid ultrasoundObtain thyroid function testsConsider thyroid hormone replacement therapy based on lab results and clinical presentation Polycystic Ovary Syndrome (PCOS)Diagnosed based on elevated DHEA and testosterone levels, currently on spironolactone for management but reports ongoing issues with excess facial hair growth.Discontinue current oral contraceptive (Nortrel )Consider switching to progesterone-only contraception after 4 weeksEvaluate effectiveness of current spironolactone dose for hirsutism managementObtain hormone panel after discontinuation of estrogen-containing contraceptive Menstrual migrainesSevere menstrual migraines reported, potentially exacerbated by high estrogen content in current oral contraceptive.Monitor migraine frequency and severity after discontinuation of estrogen-containing contraceptiveConsider prophylactic treatment options if migraines persist Weight gainSignificant weight gain reported, approximately 50 pounds over 6 years, with accelerated gain since turning 39, possibly related to PCOS, thyroid dysfunction, or other hormonal imbalances.Obtain comprehensive metabolic panelCheck vitamin D levelsEvaluate cortisol levels after 4 weeks off estrogen-containing contraceptiveConsider referral to histotechnician or weight health information management director AnxietyCurrently taking citalopram 20mg for anxiety management with no reported issues.Continue current citalopram 20mg regimenMonitor for any changes in anxiety symptoms with hormonal adjustments Follow-up:Schedule a follow-up appointment to review lab results and assess the response to interventionsEncourage patient to contact the clinic if any new or worsening symptoms occur Spent 15 minutes preventative counseling patient on dietary recommendations and changes in setting of hyperglycemia- need to restrict refined sugars and processed foods and incorporate up to 150 minutes of moderate level activity weekly. Spent 45 minutes preparing to see the patient (ex review of tests/chart), obtaining and / or reviewing separately obtained history, performing a medically appropriate examination and/or evaluation, counseling and educating the patient/family/caregiver , ordering medications, tests, or procedures, referring and communicating with other health career representative, documenting clinical information in the electronic or other health record, independently interpreting results and communicating results to the patient/family/caregiver and care coordinating patient plan. Patient alert and oriented x 4 and aware of discussion noted above and in agreeance to plan in management of PCOS, anxiety, thyroid nodules, weight management and screening for dyslipidemia. 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 Weight Management- Prescribe tirzepatide (Zepbound) for weight loss - Start with 2.5 mg dose once weekly for 4 weeks - Increase to 5 mg dose after 4 weeks - Administer on weekends with dinner - Advised to stay well-hydrated (80 ounces of water daily) - Maintain protein intake and increase fiber consumption - Monitor for side effects, particularly nausea and constipation- Informed consent: discussed 10% risk of pancreatitis 3. Thyroid Evaluation- Patient to schedule and complete thyroid ultrasound as previously ordered 4. Medication Review- Continue current medications as prescribed- Remove nortriptyline from medication list 5. New-Onset Skin Allergy- Advise patient to avoid wearing the ring- Consider referral to dermatology or clutch specialist if symptoms persist or worsen Spent 25 minutes preparing to see the patient (ex review of tests/chart), obtaining and / or reviewing separately obtained history, performing a medically appropriate examination and/or evaluation, counseling and educating the patient/family/caregiver , ordering medications, tests, or procedures, referring and communicating with other health career representative, documenting clinical information in the electronic or other health record, independently interpreting results and communicating results to the patient/family/caregiver and care coordinating patient plan. Patient alert and oriented x 4 and aware of discussion noted above and in agreeance to plan in management of obesity, PCOS, weight management/concern for hypercortisolism. 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 Obesity- Current weight is 249 lbs, up from 248 lbs at last visit- Previous attempts with phentermine were initially successful but efficacy waned- Recent prescription for GLP-1 agonist was denied by insurance- Patient is interested in weight loss interventions- Offer tirzepatide and B12 combo for weight loss at $290/month, $75/shot- Instruct on injection technique: at least 2 inches from belly button, clean with alcohol, alternate sites, once weekly with largest meal- Recommend dietary modifications: increase protein and fiber intake, consume 64-80 oz water daily, focus on fruits, vegetables, beans, avoid complex carbohydrates- Advise eating 4-5 small meals per day 3. Insomnia with suspected sleep apnea- Patient reports poor sleep and struggles with insomnia- No previous sleep study has been conducted- Given the patient's weight and potential link between severe sleep apnea, cortisol elevation, and weight gain, further evaluation is necessary- Order home sleep study through [facility]- Patient to complete two-night study, 13-16 hours of measurable sleep- Instruct patient to mail back sleep study kit for analysis 4. Contraception management- Patient was previously on norethindrone but has been switched to progesterone-only control- Continue current progesterone-only control regimen Spent 25 minutes preparing to see the patient (ex review of tests/chart), obtaining and / or reviewing separately obtained history, performing a medically appropriate examination and/or evaluation, counseling and educating the patient/family/caregiver , ordering medications, tests, or procedures, referring and communicating with other health career representative, documenting clinical information in the electronic or other health record, independently interpreting results and communicating results to the patient/family/caregiver and care coordinating patient plan. Patient alert and oriented x 4 and aware of discussion noted above and in agreeance to plan in management of PCOS, obesity/insulin resistance. Due to the nature of telemedicine, the ability to do physical assessment was limited to what can be accomplished by patient directed telehealth visit based on instruction. Those limits are understood by the patient and myself. Impression is based on history, available information, and physical findings accomplished with telehealth visit. Chronic disease/problem list/ medication list reviewed and updated where indicated. Discussed diagnosis, plan including risks, benefits, and options of treatment. Advised to call for new, worsening, or persistent symptoms. Level of patient risk was of moderate complexity due to the documented nature of presentation, the information assessment required and the nature of the development of an evaluation and treatment plan as documented. PMH, FHx, SHx, Surgical Hx, Quality management review carried out and addressed as documented today as part of this visit. Medication list was reviewed and adjusted as indicated. Medication requiring a refill was addressed. Risk and benefits of any new medications were discussed and all questions were answered. Plan Of Treatment Pending Test Test Name Order Date *CT ABDOMEN W/O CONTRAST 11008 5 *CT ABDOMEN W/O CONTRAST 99669 5 ultrasound thyroid 09/25/2024 Next Appt Details Provider Name:Maxine Giang, 01:40:00 PM, [address] [place] [address], [phone], Insurance Providers Payer Name Payer Address Payer Phone Subscriber Number Group Number Insured Name Patient Relationship to Insured Coverage Start Date Coverage End Date [facility] [address] [place] [id number] Jasmin Inman Self - patient is the insured Medical (General) History Medical History History ICD Code PCOS THYROID NODULES Surgical History Surgery Date(Month/Year) APPENDIX Hospitalization History Reason Date(Month/Year) x2
--- OUTSIDE RECORDS SUMMARY | 2025-03-30 14:19 | XMS_ITS | Referral Summary ---
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 For women [...] Most Recently Relevant to Health Maintenance Insurance [facility] Care Teams Panel Fitter Relationship Specialty Start Date End Date Wallace Simmons MD [address] [facility] [address] [place], [place] [address] PCP - General Family Medicine 12/14/21
--- OUTSIDE RECORDS SUMMARY | 2025-03-30 14:19 | XMS_ITS | Clinical Summary ---
Author Organization [facility] Address [address] [place] [phone] Phone Care Team Providers Care Industrial Sewer Name Role Phone Unavailable Primary Care Provider Unavailabl e Allergies No known active allergies Medications norethindrone-e thin estradioL (ORTHO-NOVUM 1-35) 1-35 mg-mcg tablet Nortrel 1/35 (28) 1 mg-35 mcg tablet TK 1 T PO QD Active escitalopram oxalate (LEXAPRO) 10 mg tablet escitalopram 10 mg tablet TK 1 T PO QD Active Phentermine 15 mg Capsule phentermine 15 mg capsule Take 1 capsule(s) twice a day by oral route before meals for 30 days. Active SUMAtriptan (IMITREX) 50 mg tablet sumatriptan 50 mg tablet TAKE 1 TABLET BY MOUTH TWICE DAILY NEEDED FOR MIGRAINE Active Social History Tobacco Use Types Packs/Day Years Used Date Smoking Tobacco: Never Comments Unknown Sex and Gender Information Value Date Recorded Sex Assigned at Not on file Legal Sex Female 4:32 AM CDT Gender Identity Not on file Sexual Orientation Not on file Last Filed Vital Signs Vital Sign Reading Time Taken Comments Blood Pressure 136/78 01/23/2021 4:43 AM CDT Pulse - - Temperature 36.2 C (97.2 F) 01/23/2021 4:43 AM CDT Respiratory Rate 16 01/23/2021 4:43 AM CDT Oxygen Saturation 100% 01/23/2021 4:43 AM CDT Inhaled Oxygen Concentration - - Weight 91.2 kg (201 lb) 01/23/2021 4:43 AM CDT Height 170.2 cm (5' 7) 01/23/2021 4:43 AM CDT Body Mass Index 31.48 01/23/2021 4:43 AM CDT Plan of Treatment Health Maintenance Due Date Last Done Comments HPV VACCINES (1 - 3-dose series) 1994 DTAP/TDAP/TD VACCINES (1 - Tdap) 1998 HEPATITIS B VACCINES (1 of 3 - 19+ 3-dose series) 06/04 HPV/Cotest (21-29) 2000 CERVICAL CANCER SCREENING 2009 HPV/Cotest (30-65) 2009 PAP SMEAR 2009 BREAST CANCER SCREENING 2019 COLORECTAL SCREENING 2024 Colorectal Cancer Screening 2024 FIT-DNA Q 3 years 2024 FIT/FOBT Q 1 year 2024 Flex Sig/CT Colonography Q 5 years 2024 INFLUENZA VACCINE (#1) 2025 Insurance [facility] BLUE ACCESS/TRUE BLUE PPO
--- OUTSIDE RECORDS SUMMARY | 2025-03-30 14:19 | XMS_ITS | Patient Health Record ---
Author Organization [facility] Address [address] [place] [address] Care Team Providers Care Excelsior Picker Name Role Phone Maxine Giang [phone] Allergies No Known Allergies Results Component Value Reference Range Notes COMPREHENSIVE METABOLIC PANE L (Not yet reviewed by provider) Interpretation: Performing Lab:[place], [facility], [address], [place], [address] Alysia Guaman MD Notes/Report: FASTING:YES FASTING: YES VITAMIN D, 25-HYDROXY, LC/MS /MS (Not yet reviewed by provider) Interpretation: Performing Lab:[place], [facility], [address], [place], [address] Alysia Guaman MD Notes/Report: FASTING:YES FASTING: YES ACTH, PLASMA (Not yet review ed by provider) Interpretation: Performing Lab:[place], [facility] [facility], [address], [place], [address] Juan Carlos Coleman M.D.,PhD Notes/Report: FASTING:YES FASTING: YES T3, FREE (Not yet reviewed b y provider) Interpretation: Performing Lab:[place], [facility], [address], [place], [address] Alysia Guaman MD Notes/Report: FASTING:YES FASTING: YES DHEA SULFATE (Not yet review ed by provider) Interpretation: Performing Lab:[place], [facility], [address], [place], [address] Alysia Guaman MD Notes/Report: FASTING:YES FASTING: YES ESTRADIOL (Not yet reviewed by provider) Interpretation: Performing Lab:[place] [facility], [address], [place], [address] Isis-Carmita Guaman MD Notes/Report: FASTING:YES FASTING: YES HEMOGLOBIN A1c (Not yet revi ewed by provider) Interpretation: Performing Lab:ANKIT [facility], [address] [place], [address] [facility] Mary Ann Guaman Notes/Report: FASTING:YES FASTING: YES INSULIN (Not yet reviewed by provider) Interpretation: Performing Lab:[place] [facility], [address], [place], [address] [facility] Gu[facility] Notes/Report: FASTING:YES FASTING: YES MAGNESIUM (Not yet reviewed by provider) Interpretation: Performing Lab:[place] [facility], [address], [place], [address] [facility] Gu[facility] MD Notes/Report: FASTING:YES FASTING: YES CBC (INCLUDES DIFF/PLT) (Not yet reviewed by provider) Interpretation: Performing Lab:[place] [facility], [address], [place], [address] [facility] Guaman MD Notes/Report: FASTING:YES FASTING: YES VITAMIN B12/FOLATE, SERUM PA KALLI (Not yet reviewed by provider) Interpretation: Performing Lab:[place] [facility], [address], [place], [address] IsisCarmita Guaman MD Notes/Report: FASTING:YES FASTING: YES PROGESTERONE (Not yet review ed by provider) Interpretation: Performing Lab:[place] [facility], [address], [place], [address] [facility] Gu[facility] MD Notes/Report: FASTING:YES FASTING: YES LIPID PANEL (Not yet reviewe d by provider) Interpretation: Performing Lab:[place] [facility], [address], [place], [address] [facility] Guaman MD Notes/Report: FASTING:YES FASTING: YES T4, FREE (Not yet reviewed b y provider) Interpretation: Performing Lab:[place] [facility], [address], [place], [address] Alysia Guaman MD Notes/Report: FASTING:YES FASTING: YES TSH (Not yet reviewed by pro vider) Interpretation: Performing Lab:[place], [facility], [address], [place], [address] Alysia Guaman MD Notes/Report: FASTING:YES FASTING: YES THYROID PEROXIDASE ANTIBODIE S (Not yet reviewed by provider) Interpretation: Performing Lab:CB, [facility], [address] [place], [address] Chivo Sutton Notes/Report: FASTING:YES FASTING: YES THYROID PEROXIDASE ANTIBODIES 1 <9 IU/mL TESTOSTERONE, FREE (DIALYSIS ) AND TOTAL,MS (Not yet reviewed by provider) Interpretation: Performing Lab:Z3E, [facility], [facility] [address], [address], [place], [address] Boby Granda MD,PhD Notes/Report: FASTING:YES FASTING: YES TESTOSTERONE, TOTAL, MS 16 2-45 ng/dL For additional information, please refer to https://education.LawPath.com/faq/SML942 (This link is being provided for informational/educational purposes only.) (Note) This test was developed and its analytical performance characteristics have been determined by [employer]. It has not been cleared or approved by the FDA. This assay has been validated pursuant to the CLIA regulations and is used for clinical purposes. TESTOSTERONE, FREE 1.5 0.1-6.4 pg/mL (Note) This test was developed and its analytical performance characteristics have been determined by [facility]. It has not been cleared or approved by the FDA. This assay has been validated pursuant to the CLIA regulations and is used for clinical purposes. [facility] [address] [address],[address] [facility] [id number] Boby Granda MD, PhD DEXAMETHASONE (Not yet revie wed by provider) Interpretation: Performing Lab:EZ, [facility] [facility],, [address] [place], [address] Reina Okeefe MD,PhD,JANICE Notes/Report: CORTISOL, TOTAL (Not yet rev iewed by provider) Interpretation: Performing Lab:[place], [facility], [address], [place], [address] Alysia Guaman MD Notes/Report: Reason For Referral No Information Medications Medication SIG (Take, Route, Frequency, Duration) Notes Start Date End Date Status Norethindrone 0.35 MG 1 tablet Orally On ce a day for 90 days 09/25/2024 Active Berberine Chloride A ctive dexAMETHasone 1 MG 1 tablet Orally take once at 10pm for 1 days 09/25/2024 Active SUMAtriptan Active Magnesium Active Spironolactone 100 MG 1 tablet Orally On ce a day Active Escitalopram Oxalate 20 MG 1 tablet Oral ly Once a day Active Nortrel 135 (28) 1-35 MG-MCG as directed Orally Active Problems Problem Type SNOMED Code ICD Code Onset Dates Problem Status W/U Status Risk Notes Problem Vitamin D deficiency (84461324) Vitamin D deficiency, unspecified (E55.9) Active confirmed Problem Obesity (925687341) Obesity, unspecified (E66.9) Active confirmed Problem Non-toxic multinodular goiter (94371296) Nontoxic multinodular goiter (E04.2) Active confirmed Problem Polycystic ovary syndrome (disorder) (080448528) Polycystic ovarian syndrome (E28.2) Active confirmed Vital Signs Heart Rate 81 /min 09/25/2024 Blood pressure diastolic 80 mm Hg 09/25/2024 Height 67 in 09/25/2024 Blood pressure systolic 130 mm Hg 09/25/2024 Weight 247.0 lbs 09/25/2024 BMI 38.68 kg/m2 09/25/2024 Encounters Encounter Location Date Provider Diagnosis [facility] - Maxine Giang [address] [place] [address] 10/27/2024 Max[facility] - Maxine Giang [address] [place] [address] 09/25/2024 Maxine Giang Nontoxic multinodula r goiter E04.2 ; Obesity, unspecified E66.9 ; Abnormal weight gain R63.5 ; Other fatigue R53.83 ; Vitamin D deficiency, unspecified E55.9 ; Encounter for screening for lipoid disorders Z13.220 ; Polycystic ovarian syndrome E28.2 and Dietary counseling and surveillance Z71.3 [facility], [facility] - Maxine Giang [address] [place] [address] 09/25/2024 Maxine Giang Obesity, unspecified E66.9 and Polycystic ovarian syndrome E28.2 [employer] [facility] [address] [place] [address] 09/25/2024 Maxine Giang Assessments Encounter Date Diagnosis (ICD Code) Assessment Notes Treatment Notes Treatment Clinical Notes Section Notes 09/25/2024 Obesity, unspecified (ICD-10 - E66.9) 09/25/2024 Nontoxic multinodular goiter (ICD-10 - E04.2) 09/25/2024 Obesity, unspecified (ICD-10 - E66.9) 09/25/2024 Abnormal weight gain (ICD-10 - R63.5) 09/25/2024 Polycystic ovarian syndrome (ICD-10 - E28.2) 09/25/2024 Other fatigue (ICD-10 - R53.83) 09/25/2024 Vitamin D deficiency, unspecified (ICD-10 - [...] 4 weeks off estrogen-containing contraceptiveConsider referral to athletic shoe designer or weight management coordinator AnxietyCurrently taking citalopram 20mg for anxiety management [...] procedures, referring and communicating with other health geriatric personal care aide, documenting clinical information in the electronic or other health record, independently interpreting results and communicating results to the patient/family/caregiver and care coordinating patient plan. Patient alert and oriented x 4 and aware of discussion noted above and in agreeance to plan in management of PCOS, anxiety, thyroid nodules, weight management and screening for dyslipidemia. Plan Of Treatment Pending Test Test Name Order Date ultrasound thyroid 09/25/2024 COMPREHENSIVE METABOLIC PANEL 10/24/2024 VITAMIN D, 25-HYDROXY, LC/MS/MS 10/24/19 25 ACTH, PLASMA 10/24/2024 DEXAMETHASONE 10/29/2024 T3, FREE 10/24/2024 CORTISOL, TOTAL 10/29/2024 DHEA SULFATE 10/24/2024 ESTRADIOL 10/24/2024 HEMOGLOBIN A1c 10/24/2024 INSULIN 10/24/2024 MAGNESIUM 10/24/2024 CBC (INCLUDES DIFF/PLT) 10/24/2024 VITAMIN B12/FOLATE, SERUM PANEL 10/24/19 25 PROGESTERONE 10/24/2024 LIPID PANEL 10/24/2024 T4, FREE 10/24/2024 TSH 10/24/2024 THYROID PEROXIDASE ANTIBODIES 10/24/2024 TESTOSTERONE, FREE (DIALYSIS) AND TOTAL, MS 10/24/2024 Insurance Providers Payer Name Payer Address Payer Phone Subscriber Number Group Number Insured Name Patient Relationship to Insured Coverage Start Date Coverage End Date [employer] [address] [place] [address] [phone] [id number] Jasmin Inman Self - patient is the insured Medical (General) History Medical History History ICD Code PCOS THYROID NODULES Surgical History Surgery Date(Month/Year) APPENDIX Hospitalization History Reason Date(Month/Year) x2
--- OUTSIDE RECORDS SUMMARY | 2025-03-30 14:19 | XMS_ITS ---
Author Organization [facility] Address [address] [facility] [place] [address] Care Team Providers Care House Wirer Helper Name Role Phone Maxine Giang Radha [phone] REASON FOR VISIT 1 month Follow-up Encounters Encounter Location Date Provider Diagnosis [facility] - Maxine Giang [address] [place] [address] 10/27/2024 Maxine Giang Plan Of Treatment No Information Progress Notes * Jasmin LOZOYADOB:[birth year] (44 yo F)Acc No.[id number]:10/27/2024 Progress Notes Patient: Jasmin BENNETT Provider: Damaris Giang MD :1980 A ge:44 Y S ex:Female Date:10/27/2024 Address:[facility] [address], [facility] [id number] Subjective: * Chief Complaints: * 1 . 1 month Follow-up. * Medical History: Objective: * Vitals: Assessment: Plan: * Treatment: * Billing Information: * Visit Code: * Procedure Codes: * Electronic signature of Jose Raul Giang MD on 03/30/2025 at 02:19 PM CDT Sign off status: Pending * Provider: Damaris Giang MD Date: 10/27/2024 Generated for Jd pérez/Cary/eTransmitting on: 03/30/2025 02:19 PM CDT
== END 2025-03-30 14:15 | disposition home or self-care (01) ==
PROVIDERS: Visit Provider Internal Medicine Endocrinology, Diabetes & Metabolism
DX: E04.2 Nontoxic multinodular goiter (principal)
CPT/HCPCS: 76536